=== PATIENT | male | born 2005 | race Caucasian/White ===

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

== ENCOUNTER 2025-07-16 11:11 | Emergency (ER) | payer MEDICAID ==
[2025-07-16 12:43] VITALS: BP 134/79; PULSE 64
== END 2025-07-16 12:40 | disposition home or self-care (01) ==
LOC: JD.ED 11:11
DX: M54.50 Low back pain, unspecified (principal); Z88.1 Allergy status to other antibiotic agents
CPT/HCPCS: 72100; 99283; A9270